=== PATIENT | female | born 1995 | race Caucasian/White ===

== ENCOUNTER 2022-07-28 13:45 | Outpatient (CLI) | payer BC, SELFPAY ==
--- NOTE | ~2022-07-28 | XR_ITS ---
EXAMINATION: XR foot RT min 3V DATE: 07/28/2022 14:13 INDICATION: Severe choking injury to the arch of the foot TECHNIQUE: Dorsoplantar, two oblique and lateral views of the right foot were obtained. COMPARISON: None. FINDINGS: Alignment is normal. No fracture. Joint spaces are normal. Soft tissues are unremarkable. No radiopaq ue foreign bodies identified. IMPRESSION: 1. Negative right foot radiographs. Reviewed, dictated and finalized at location A.
== END 2022-07-28 13:46 | disposition home or self-care (01) ==
PROVIDERS: PCP Family Medicine; Visit Provider Physician Assistant
DX: S91.339A Puncture wound without foreign body, unspecified foot, initial encounter (principal); X58.XXXA Exposure to other specified factors, initial encounter
CPT/HCPCS: 73630

== ENCOUNTER 2022-09-06 09:37 | Emergency (ER) | payer BC, SELFPAY ==
[2022-09-06 09:53] VITALS: BP 110/82; PULSE 93; RESP 16; TEMP 36.8; O2SAT 100
--- NOTE | 2022-09-06 09:58 | ED.URI ---
HPI - URI/Sore Throat General Chief Complaint: Upper Respiratory Infection Stated Complaint: sore throat Time Seen by Provider: 09/06/22 09:55 Source: patient Mode of arrival: ambulatory Limitations: no limitations History of Present Illness HPI Narrative: Hattie is a 26-year-old female patient presenting to clinic today with complaints of possible strep throat. She reports that she developed sore throat over the last 1-2 days. She denies any fever but has had a cough as well. She denies any known exposure to anybody with strep, flu, or COVID. States that she has had a history of a tonsillectomy in the past due to recurrent strep MD elicited complaint: sore throat and nasal congestion Related Data Allergies Allergy/AdvReac Type Severity Reaction Status Date / Time amoxicillin Allergy Rash Verified 09/06/22 09:58 azithromycin [From Zithromax] Allergy Rash Verified 09/06/22 09:58 Review of Systems Review of Systems: Pertinent positives per HPI. Patient denies any fever, chills, rash, headache, visual changes, dizziness, cough, shortness of breath, chest pain, palpitations, nausea, vomiting, diarrhea, constipation, abdominal pain, or any urinary issues. PMFSH Comments At the time of my signature, I reviewed and agree with the nursing past medical, surgical, social, and family history. There is no relevant family history pertinent to the patient complaint. Exam Narrative: General: Well-developed, well nourished, in no apparent distress Head: Normocephalic, atraumatic Eyes: Pupils equally round and reactive to light bilaterally, EOM intact, sclera and conjunctive clear, no discharge, lids normal Ears: TMs intact and clear, ear canals clear, no drainage, grossly hearing normal. Nose: Nares patent, clear nasal discharge, no inflammation, no sinus tenderness. Mouth: Oral pharynx without lesions or masses, good dentition, MMM. Oropharynx red with tonsils surgically absent Neck: Supple, trachea midline, no enlargement of anterior or posterior cervical nodes, no thyroid masses or goiter palpable. Cardio: Regular rate and rhythm, s1 and s2 normal, no murmur appreciated. Resp: Clear to auscultation bilaterally, no rhonchi, rales, wheezing or rubs Course Course Emergency Course: Portions of this record may have been created with voice recognition software. Level of Care: Express Care Visit Vital Signs Vital signs: Vital Signs Temperature 36.8 C 09/06/22 09:53 Pulse Rate 93 09/06/22 09:53 Respiratory Rate 16 09/06/22 09:53 Blood Pressure 110/82 09/06/22 09:53 Pulse Oximetry 100 09/06/22 09:53 Temperature 36.8 C 09/06/22 09:53 Pulse Rate 93 09/06/22 09:53 Respiratory Rate 16 09/06/22 09:53 Blood Pressure 110/82 09/06/22 09:53 Pulse Oximetry 100 09/06/22 09:53 Vital signs reviewed MDM - URI/Sore Throat MDM Narrative Medical decision making narrative: At the time of visit patient is resting comfortably on the exam table. Strep screen is positive influenza testing was negative. Whilst place patient on some cefdinir she has had this before without any kind of reaction. Supportive measures were discussed with the patient she voiced understanding of discharge instructions and agrees to treatment plan Differential Diagnosis Differential diagnosis: Likely upper respiratory infection, otitis media, sinusitis, viral infection, bronchitis, influenza, pharyngitis and other Lab Data Labs: Influenza A Screen Negative Reference Range: Negative Influenza B Screen Negative Reference Range: Negative Strep Screen Positive Group A Strep *(Reference Range: Negative)* Strep Screen Positive Group A Strep *(Reference Range: Negative)* Discharge Plan Discharge Clinical Impr
== END 2022-09-06 10:05 | disposition home or self-care (01) ==
PROVIDERS: Emergency Provider Nurse Practitioner Family; PCP Family Medicine
DX: J02.0 Streptococcal pharyngitis (principal)
CPT/HCPCS: 87804; 87880; 99213; G0463

== ENCOUNTER 2022-09-23 08:01 | Emergency (ER) | payer BC, SELFPAY ==
--- NOTE | 2022-09-23 08:04 | ED.URI ---
HPI - URI/Sore Throat General Stated Complaint: SORE THROAT Time Seen by Provider: 09/23/22 08:04 Source: patient and RN notes reviewed History of Present Illness HPI Narrative: Patient is a 26-year-old female who presents to urgent care with complaints of sore throat since after [place]. Patient was tested positive for strep on the 06 of September and given cefdinir for 10 days in which she did not finish. Patient states that the sore throat never fully went away. Denies any fevers, nausea, vomiting or other upper respiratory symptoms. No other acute complaints. No acute distress noted. Patient aware of the plan of care. Some parts of this dictation were generated by voice recognition software and may contain typographical and/or grammatical inaccuracies. Related Data Allergies Allergy/AdvReac Type Severity Reaction Status Date / Time amoxicillin Allergy Rash Verified 09/23/22 08:10 azithromycin [From Zithromax] Allergy Rash Verified 09/23/22 08:10 Review of Systems Review of Systems: CONSTITUTIONAL: Denies fever, chills, or sweats. EYES: Denies visual changes, redness, or discharge. ENT: Denies rhinorrhea, congestion, otalgia. Reports of sore throat CARDIOVASCULAR: Denies chest pain, palpitations, or edema. RESPIRATORY: Denies cough or dyspnea. GASTROINTESTINAL: Denies abdominal pain, nausea, vomiting, or diarrhea. GENITOURINARY: Denies dysuria or hematuria. SKIN: Denies rash or itching. MUSCULOSKELETAL: Denies back pain, joint pain, or myalgia. NEUROLOGIC: Denies headache, numbness, or weakness. All other systems reviewed are negative, except as documented in HPI. PMFSH Comments At the time of my signature, I reviewed and agree with the nursing past medical, surgical, social, and family history. There is no relevant family history pertinent to the patient complaint. Exam Narrative: GENERAL: This is a well-nourished, well-developed patient, in no apparent distress. HEAD: normocephalic, atraumatic. EYES: PERRL. Sclera clear/white. Vision is grossly intact. EARS: External ears normal, auditory canals clear and without drainage, TMs normal without perforation. Hearing grossly intact. NOSE: External nose normal with no obvious nasal discharge, nares without redness, no rhinorrhea. THROAT: Mucous membranes moist, mild erythema to posterior pharynx with moderate postnasal drainage NECK: Neck supple, non-tender without lymphadenopathy CARDIOVASCULAR: Regular rate and rhythm without murmurs, gallops, or rubs. RESPIRATORY: Clear to auscultation. Breath sounds equal bilaterally. No wheezes, rales, or rhonchi. SKIN: warm, intact with no suspicious lesions or rash, good texture and turgor. NEURO: awake, alert, and oriented to person, place and time. There were no obvious focal neurologic abnormalities. EXTREMITIES: No clubbing, cyanosis, or edema. Course Course Level of Care: Express Care Visit Vital Signs Vital signs: Vital Signs Temperature 98.3 F 09/23/22 08:07 Pulse Rate 100 09/23/22 08:07 Respiratory Rate 16 09/23/22 08:07 Blood Pressure 104/82 09/23/22 08:07 Pulse Oximetry 100 09/23/22 08:07 Oxygen Delivery Room Air 09/23/22 08:07 Temperature 98.3 F 09/23/22 08:07 Pulse Rate 100 09/23/22 08:07 Respiratory Rate 16 09/23/22 08:07 Blood Pressure 104/82 09/23/22 08:07 Pulse Oximetry 100 09/23/22 08:07 Oxygen Delivery Room Air 09/23/22 08:07 Reviewed MDM - URI/Sore Throat MDM Narrative Medical decision making narrative: Advised patient to complete the oral antibiotic regimen as prescribed. If you do not complete the antibiotics, your strep infection will not be cured. Be sure to eat and drink with the medication to help reduce nausea and side effects. Use Tylenol/ibuprofen as needed. Use a daily antihistamine such as Zyrtec or Claritin. Change her toothbrush within 2-3 days. Follow-up with your PCP within 2-5 days or for worsening symptoms or failure to improve. D
[2022-09-23 08:07] VITALS: BP 104/82; PULSE 100; RESP 16; TEMP 36.8; O2SAT 100
== END 2022-09-23 08:18 | disposition home or self-care (01) ==
PROVIDERS: Emergency Provider Nurse Practitioner Family; PCP Family Medicine
DX: J02.0 Streptococcal pharyngitis (principal)
CPT/HCPCS: 99213; G0463

== ENCOUNTER 2024-01-19 10:21 | Outpatient (CLI) | payer BC, SELFPAY ==
[2024-01-19 11:13] LABS: Influenza A QL RT-PCR Negative (Negative); Influenza B QL RT-PCR Negative (Negative); RSV RNA, RT-PCR Negative (Negative); SARS-CoV-2 RNA PCR Negative (Negative)
== END 2024-01-19 10:22 | disposition home or self-care (01) ==
LOC: ANHLAB 10:24
PROVIDERS: PCP Family Medicine; Visit Provider Physician Assistant
DX: J02.9 Acute pharyngitis, unspecified (principal); Z20.822 Contact with and (suspected) exposure to COVID-19
CPT/HCPCS: 87637

== ENCOUNTER 2024-01-26 11:30 | Outpatient (CLI) | payer BC, SELFPAY ==
--- NOTE | ~2024-01-26 | XR_ITS ---
Clinical Indication: Cough PA and lateral views of the chest: Comparison: 01/19/2019 Findings: The lungs are clear, without evidence of focal consolidation or pleural effusion. Cardiome diastinal silhouette is within normal limits. Bones and soft tissues are unremarkable. Impression: Normal chest. Reviewed, dictated and finalized at location . Impression: Normal chest.
== END 2024-01-26 11:31 ==
PROVIDERS: PCP Physician Assistant; Visit Provider Physician Assistant
DX: R05.9 Cough, unspecified (principal)
CPT/HCPCS: 71046

== ENCOUNTER 2024-12-16 11:26 | Outpatient (CLI) | payer BC, SELFPAY ==
--- NOTE | ~2024-12-16 | US_ITS ---
EXAMINATION: US OB /maternal detail DATE: 12/16/2024 12:05 INDICATION: Encounter for screening, unspecified. TECHNIQUE: Real-time ultrasound of the pelvis was performed. COMPARISON: None. FINDINGS: There is a single living fetus in breech presentation. The placenta is posterior and fundal, 5.3 cm in the cervix. The cervical length is 4.5 cm on transabdominal images, which is normal. heart r ate is 153 beats per minute (bpm). The amniotic fluid volume is surgically normal. The following biometric data were obtained: Biparietal diameter (BPD): 4.8 cm; head circumference (HC): 17.7 cm; abdominal circumference (AC): 15 .4 cm; femur length (FL): 3.2 cm. These measurements are concordant. Estimated weight is 347 g +/- 52 g, which correlates with the 48th percentile when 05/03/25 is u sed as estimated date of delivery. As single measurements, these parameters are each equal to the following estimated gestational ages: BPD: 20 weeks 4 days. HC: 20 weeks 1 days. AC: 20 weeks 4 days. FL: 20 weeks 0 days. estimated gestational age based solely on measurements from this exam is 20 weeks 0 days +/- 1 weeks 3 days. The cerebral ventricles, cerebellum, cisterna magna, nuchal fold, and spine are normal. The heart is normal. The diaphragm, stomach, kidneys, and bladder are normal. There are two umbilical arteries to yield a 3-vessel cord. The cord insertion is normal. IMPRESSION: 1. Single living fetus in breech presentation. 2. Estimated weight is 347 g +/- 52 g, which correlates with the 48th percentile when 05/03/25 is used as estimated date of delivery. Reviewed, dictated and finalized at location A. LACER IMPRESSION: 1. Single living fetus in breech presentation. 2. Estimated weight is 347 g +/- 52 g, which correlates with the 48th pe rcentile when 05/03/25 is used as estimated date of delivery.
== END 2024-12-16 11:27 | disposition home or self-care (01) ==
LOC: MICIMG 11:28
PROVIDERS: PCP Family Medicine; Visit Provider Obstetrics & Gynecology
DX: Z36.9 Encounter for antenatal screening, unspecified (principal); Z3A.20 20 weeks gestation of pregnancy
CPT/HCPCS: 76805